=== PATIENT | male | born 1930 | race Caucasian/White ===

== ENCOUNTER 2019-02-22 17:23 | Emergency (ER) | payer OTHER, BC ==
[~2019-02-22] VITALS: Ht 180.3 cm; Wt 72.1 kg
[2019-02-22 17:45] VITALS: BP 149/77
[2019-02-22] MEDS ORDERED: CHOL500040 PO (17:58)
[2019-02-22] MEDS ORDERED: ESCI10TA PO (17:58)
[2019-02-22] MEDS ORDERED: QUET25TA PO (17:58)
[2019-02-22] MEDS ORDERED: SIMV40TA1 PO (17:58)
[2019-02-22] MEDS ORDERED: DIVA250E1 PO (17:58)
[2019-02-22] MEDS ORDERED: METF750T PO (17:58)
[2019-02-22] MEDS ORDERED: SYN.1 PO (17:58)
--- NOTE | 2019-02-22 18:00 | NUR ---
AWAIS FROM [facility] WITH COMPLAINTS OF FALL, PT ROLLED OUT OF BED PER HIS GF AND C/O ALL OVER BODY PAIN AND TAILBONE PAIN. PT DENIES ANY PAIN UPON ARRIVAL. I CALLED AND SPOKE TO KADY NURSE AT FACILITY AND SHE REPORTED THAT PATIENT LEFT FROM FACILITY YESTERDAY WITH FAMILY AND HAD A FALL YESTERDAY, HIT HIS HEAD AND LOST CONCIOUSNESS, NURSE STATES THIS AM THEY HAD TROUBLE WALKING HIM. PT IS AWAKE , ALERT X2 ,NO C/O PAIN AT THIS TIME.NO SIGN OF BRUISES OR HEMATOMA NOR CONTUSSION NOTED AT THE TIME OF EXAMINATION.UE MOTOR 5/5 ,LE 4/5. HX HYPOTHYROID, DM, HIGH CHOLESTEROL
--- NOTE | 2019-02-22 18:00 | NUR ---
Note fern in EDM - 02/22/19 at 1827 by MEDAD BENJARaul FROM [facility] WITH COMPLAINTS OF FALL, PT ROLLED OUT OF BED PER HIS GF AND C/O ALL OVER BODY PAIN AND TAILBONE PAIN. PT DENIES ANY PAIN UPON ARRIVAL. I CALLED AND SPOKE TO KADY NURSE AT FACILITY AND SHE REPORTED THAT PATIENT LEFT FROM FACILITY YESTERDAY WITH FAMILY AND HAD A FALL YESTERDAY, HIT HIS HEAD AND LOST CONCIOUSNESS, NURSE STATES THIS AM THEY HAD TROUBLE WALKING HIM HX HYPOTHYROID, DM, HIGH CHOLESTEROL
--- NOTE | 2019-02-22 19:10 | NUR ---
RECEIVED REPORT FROM FANTA MAYS.
--- NOTE | 2019-02-22 19:10 | NUR ---
REPORT TO FANTA CAREY.
--- NOTE | 2019-02-22 19:38 | NUR ---
DR. ARNOLD EVALUATING PATIENT AT BEDSIDE.
--- NOTE | 2019-02-22 20:42 | NUR ---
PATIENT BACK FROM CT.
--- NOTE | 2019-02-22 21:02 | NUR ---
PATIENT ALERT AND ORIENTED TO NAME. ATTEMPTED TO GET OUT OF BED AND AMBULATE ON HIS OWN. NO INJURY NOTED. ESCORTED PATIENT BACK TO BED. VSS. WILL CONTINUE TO MONITOR.
[2019-02-22 21:41] LABS: BASOPHILS % (AUTO) 0.7 % (0.0-2.0); EOSINOPHILS # (AUTO) 0.1 K/uL (0-0.4); EOSINOPHILS % (AUTO) 1.3 % (0.0-4.0); HEMOGLOBIN 12.5 g/dL (12.0-18.0); LYMPHOCYTES # (AUTO) 1.3 K/uL (2.0-11.5); LYMPHOCYTES % (AUTO) 23.7 % (20.5-51.1); MEAN CORPUSCULAR HEMOGLOBIN 31 pg (27-31); MEAN CORPUSCULAR HGB CONC 33 g/dL (33-37); MEAN CORPUSCULAR VOLUME 95.2 fL (80-94); MONOCYTES # (AUTO) 0.6 K/uL (0.8-1.0); MONOCYTES % (AUTO) 10.1 % (1.7-9.3); NEUTROPHILS # (AUTO) 3.6 K/uL (1.8-7.7); NEUTROPHILS % (AUTO) 64.2 % (42.2-75.2); PLATELET COUNT (AUTO) 176 K/uL (140-450); RED BLOOD CELL COUNT(AUTO) 3.99 MIL/uL (4.20-6.10); RED CELL DISTRIBUTION WIDTH 13.5 % (11.6-13.7); WHITE BLOOD COUNT (AUTO) 5.6 K/uL (4.8-10.8)
[2019-02-22 21:48] LABS: CARBON DIOXIDE 24.2 mmol/L (21-32); CHLORIDE 99 mmol/L (98-107); GLUCOSE 131 mg/dL (74-106); POTASSIUM 4.2 mmol/L (3.5-5.1); SODIUM SERUM 136 mmol/L (136-145); UREA NITROGEN, BLOOD 15 mg/dL (7-18)
[2019-02-22 21:54] LABS: ALBUMIN 3.5 g/dL (3.4-5.0); ASPARTATE AMINOTRANSFERASE 11 U/L (15-37); PROTHROMBIN TIME 10.7 secs (10.8-13.4); TOTAL BILIRUBIN 0.7 mg/dL (0.0-1.0)
[2019-02-22] MEDS ORDERED: LABETALOL 100 MG/20 ML VIAL IVP ONE (22:00)
--- NOTE | 2019-02-22 22:04 | NUR ---
Note undone in EDM - 02/23/19 at 0209 by COCO Patient to be transferred to [facility]. Is being transferred due to . Receiving facility has accepting physician and available space. ER physician has signed transfer form. Patient or responsible republican has agreed to transfer and signed form. Patient belongings inventoried and will be sent with patient. Copy of nursing notes, lab reports, EKG, Physicians Orders and X-rays to be sent with patient. Report called to at receiving facility. ambulance service has been called for transfer. ETA is .
--- NOTE | 2019-02-22 22:10 | NUR ---
INFORMED SON THAT PT WILL BE TRANSFERED FROM [facility] ER TO [facility] ER. SON VERBALLIZED SATISFACTION.
--- NOTE | 2019-02-22 22:25 | NUR ---
PATIENT STATES, " I WANT TO GET UP TO SMOKE". WILL CONTINUE TO MONITOR PATIENT. SAFETY MEASURES IMPLEMENTED.
--- NOTE | 2019-02-22 22:35 | NUR ---
REPORT GIVEN TO FANTA MAYORGA AT [facility].
--- NOTE | 2019-02-22 23:18 | NUR ---
SPOKE WITH [facility]. NEW ETA IS 0031 (02/23/19).
[2019-02-23 00:31] VITALS: BP 145/70
--- NOTE | 2019-02-23 00:31 | NUR ---
Patient to be transferred to [facility]. Is being transferred due to HIGHER LEVEL OF CARE. Receiving facility has accepting physician and available space. ER physician has signed transfer form. Patient or responsible alliance party has agreed to transfer and signed form. Patient belongings inventoried and will be sent with patient. Copy of nursing notes, lab reports, EKG, Physicians Orders and X-rays to be sent with patient. Report called to at receiving facility. [facility] ambulance service has been called for transfer. ETA is 0031.
== END 2019-02-23 00:31 | disposition short-term general hospital (02) ==
LOC: MED 17:23
DX: S06.5X0A Traumatic subdural hemorrhage without loss of consciousness, initial encounter (principal); I10 Essential (primary) hypertension; E11.9 Type 2 diabetes mellitus without complications; E78.00 Pure hypercholesterolemia, unspecified; Z79.899 Other long term (current) drug therapy; Z79.84 Long term (current) use of oral hypoglycemic drugs; W06.XXXA Fall from bed, initial encounter; Y93.89 Activity, other specified; Y92.89 Other specified places as the place of occurrence of the external cause; Y99.8 Other external cause status
CPT/HCPCS: 36415; 70450; 72125; 72192; 80053; 85025; 85610; 85730; 96374; 99291; J3490